=== PATIENT | female | born 1980 | race Two or more races ===

== ENCOUNTER 2016-12-01 16:01 | Emergency (ER) | payer MEDICAID ==
[~2016-12-01] VITALS: Ht 162.6 cm; Wt 58.0 kg
[2016-12-01 16:05] VITALS: BP 150/74
== END 2016-12-01 20:20 | disposition left against medical advice (07) ==
LOC: ER 16:18
DX: R53.1 Weakness (principal); Z53.21 Procedure and treatment not carried out due to patient leaving prior to being seen by health care provider